=== PATIENT | female | born 1970 | race American Indian/Alaskan Native ===

== ENCOUNTER 2019-01-20 09:50 | Emergency (ER) | payer BC ==
--- NOTE | 2019-01-20 10:50 | Emergency Department Report ---
Chief Complaint: Upper Respiratory Infection Stated Complaint: FLU LIKE SYM Time Seen by Provider: 01/20/19 10:45 - HPI History of Present Illness: 48-year-old -[place] female presents to the emergency room stating she thinks she has the flu. Patient states that she has some dizziness intermittent chills. She vomited 2 times today. No pain no cough no fever no runny nose and nasal congestion he aches. Patient did not get her flu vaccine today. Patient is taking nothing for symptoms. She does have a primary care doctor Dr. Jelena Reinoso. - ROS Review of Systems: Chills, body aches, vomited 2 Fever no pain no diarrhea no cough no chest pain no shortness of breath no runny nose no nasal congestion - Exam Physical Exam: Gen: alert oriented NAD Cardic: regular rate and rhythm no murmurs appreciated Resp: Clear to auscultation bilateral no wheezing no rales or rhonchi. Abdomen: Soft nontender nondistended normal bowel sounds. Mini neuro: Normal finger to nose exam, prfo-ci-ajsf normal, Romberg neg, strengh 4/5 all extrimities, Alert and oriented time 3 Crainal nerve II-IIX intact MSE screening note: Focused history and physical exam performed. Due to findings the following was ordered: Patient does not need emergency criteria. Patient has viral-like symptoms. Patient can continue to take Tylenol ibuprofen and ujbl-[id number] medications for symptom relief and patient could follow up with her primary care doctor Dr. Jelena Reinoso ED Disposition for MSE Clinical Impression: Viral syndrome Disposition: Z-07 MED SCREENING EXAM-LEFT Is pt being admited?: No Does the pt Need Aspirin: No Condition: Stable Instructions: Viral Syndrome (ED) Additional Instructions: Increase fluid intake of venture diet as tolerated. Take [id number] symptom relief medication such as Robitussin [place] plus NyQuil or DayQuil. Pain medication such as ibuprofen or Tylenol. Referrals: JELENA REINOSO MD [Staff Physician] - 3-5 Days Forms: Work/School Release Form(ED)
[2019-01-20 10:59] VITALS: BP 130/85
== END 2019-01-20 11:16 | disposition left against medical advice (07) ==
LOC: ED 09:50
DX: R11.10 Vomiting, unspecified (principal); B34.9 Viral infection, unspecified
CPT/HCPCS: 99281